=== PATIENT | male | born 1980 | race Caucasian/White ===

== ENCOUNTER 2016-11-17 17:54 | Emergency (ER) | payer OTHER, SELFPAY ==
[~2016-11-17] VITALS: Ht 167.6 cm; Wt 78.3 kg
[2016-11-17 17:54] VITALS: BP 138/77
[2016-11-17] MEDS ORDERED: METO12TA PO ×2 (18:02→18:43)
== END 2016-11-17 18:53 | disposition home or self-care (01) ==
LOC: M ED 18:25
DX: I10 Essential (primary) hypertension (principal); Z76.0 Encounter for issue of repeat prescription; Z79.899 Other long term (current) drug therapy; Z87.891 Personal history of nicotine dependence

== ENCOUNTER 2017-05-03 00:47 | Emergency (ER) | payer MEDICAID, OTHER, SELFPAY ==
[~2017-05-03] VITALS: Ht 167.6 cm; Wt 79.5 kg
[~2017-05-03 00:47] MED LIST: METO1TAB87 PO
[2017-05-03] MEDS ORDERED: AMOX500C PO (06:58)
[2017-05-03] MEDS ORDERED: PERC5TAB12 PO (07:01)
[2017-05-03] MEDS ORDERED: CLINDAMYCIN 900 MG in APPROPRIATE DILUENT 1 EA IV ONE (07:15)
[2017-05-03] MEDS ORDERED: IBUPROFEN 800 MG TAB PO ONE (08:15)
[2017-05-03] MEDS ORDERED: CLEO300C2 PO (08:19)
[2017-05-03 08:33] VITALS: BP 137/93
== END 2017-05-03 08:35 | disposition home or self-care (01) ==
LOC: M ED 00:47
DX: G50.1 Atypical facial pain (principal); F17.200 Nicotine dependence, unspecified, uncomplicated; Z79.899 Other long term (current) drug therapy

== ENCOUNTER → 2017-06-05 | Outpatient (REF) | payer MEDICAID | LOC: M LAB REF 17:31 | DX: J02.9 Acute pharyngitis, unspecified (principal) | CPT/HCPCS: 87070 ==

== ENCOUNTER → 2017-06-23 | Outpatient (REF) | payer OTHER, MEDICAID | LOC: M LAB REF 19:58 | DX: F19.14 Other psychoactive substance abuse with psychoactive substance-induced mood disorder (principal) ==

== ENCOUNTER → 2017-06-30 | Outpatient (REF) | payer OTHER, MEDICAID ==
[2017-07-08 08:06] LABS: AMPHETAMINE SCREEN, URINE Negative ng/mL (Cutoff=1000); BARBITURATES SCREEN, URINE Negative ng/mL (Cutoff=200); BENZODIAZEPINES, URINE SCREEN Negative ng/mL (Cutoff=200); CANNABINOID SCREEN, URINE See Final Results ng/mL (Cutoff=20); CANNABINOID, URINE Positive (Cutoff=20); CARBOXY THC (GC/MS) 16 ng/mL (Cutoff=10); COCAINE SCREEN, URINE Negative ng/mL (Cutoff=300); CREATININE, URINE 86.9 mg/dL (20.0-300.0); FENTANYL URINE SCREEN Negative pg/mL (Cutoff=2000); METHADONE, URINE SCREEN Negative ng/mL (Cutoff=300); NALOXONE RESULT Positive (.); OPIATE SCREEN, URINE Negative ng/mL (Cutoff=300); OXYCODONE, SCREEN, URINE Negative ng/mL (Cutoff=100); PCP SCREEN, URINE Negative ng/mL (Cutoff=25); SPECIFIC GRAVITY, URINE 1.007 (.); URINE BUPRENORPHINE Positive (.); URINE BUPRENORPHINE Positive (Cutoff=10); URINE BUPRENORPHINE See Final Results ng/mL (Cutoff=10); URINE BUPRENORPHINE CONFIRM 166 ng/mL (Cutoff=10); URINE NORBUPRENORPHINE Positive (.); URINE NORBUPRENORPHINE CONFIRM 192 ng/mL (Cutoff=10); pH, URINE 5.3 (4.5-8.9)
== END ==
LOC: M LAB REF 19:30
DX: F19.14 Other psychoactive substance abuse with psychoactive substance-induced mood disorder (principal)
CPT/HCPCS: 80362

== ENCOUNTER → 2017-07-07 | Outpatient (REF) | payer OTHER, MEDICAID | LOC: M LAB REF 19:21 | DX: F19.14 Other psychoactive substance abuse with psychoactive substance-induced mood disorder (principal) ==

== ENCOUNTER → 2017-07-16 | Outpatient (REF) | payer OTHER, MEDICAID | LOC: M LAB REF 19:31 | DX: F19.14 Other psychoactive substance abuse with psychoactive substance-induced mood disorder (principal) ==

== ENCOUNTER → 2017-07-21 | Outpatient (REF) | payer OTHER, MEDICAID | LOC: M LAB REF 16:24 | DX: F19.14 Other psychoactive substance abuse with psychoactive substance-induced mood disorder (principal) ==

== ENCOUNTER → 2017-07-28 | Outpatient (REF) | payer OTHER, MEDICAID ==
[2017-07-28 21:13] LABS: ALBUMIN 3.9 GM/DL (3.2-5.2); ALBUMIN/GLOBULIN RATIO 1.39 (1.00-1.93); ALKALINE PHOSPHATASE 100 U/L (45-117); ALT/SGPT 26 U/L (12-78); ANION GAP 7 MEQ/L (8-16); AST/SGOT 22 U/L (7-37); BILIRUBIN,TOTAL 0.3 MG/DL (0.2-1.0); BLOOD UREA NITROGEN 4 MG/DL (7-18); CALCIUM LEVEL 8.6 MG/DL (8.5-10.1); CARBON DIOXIDE LEVEL 28 MEQ/L (21-32); CHLORIDE LEVEL 105 MEQ/L (98-107); CREATININE FOR GFR 0.79 MG/DL (0.70-1.30); GLOMERULAR FILTRATION RATE > 60.0 (>60); GLUCOSE, FASTING 118 MG/DL (70-100); POTASSIUM SERUM 3.7 MEQ/L (3.5-5.1); SODIUM LEVEL 140 MEQ/L (136-145); TOTAL PROTEIN 6.7 GM/DL (6.4-8.2)
== END ==
LOC: M LAB REF 20:12
DX: F19.14 Other psychoactive substance abuse with psychoactive substance-induced mood disorder (principal)

== ENCOUNTER → 2017-08-04 | Outpatient (REF) | payer OTHER, MEDICAID | LOC: M LAB REF 19:29 | DX: F19.120 Other psychoactive substance abuse with intoxication, uncomplicated (principal) ==

== ENCOUNTER → 2017-08-11 | Outpatient (REF) | payer OTHER, MEDICAID | LOC: M LAB REF 16:50 | DX: F19.14 Other psychoactive substance abuse with psychoactive substance-induced mood disorder (principal) ==

== ENCOUNTER → 2017-08-18 | Outpatient (REF) | payer OTHER, MEDICAID ==
[2017-08-25 08:40] LABS: AMPHETAMINE SCREEN, URINE Negative ng/mL (Cutoff=1000); BARBITURATES SCREEN, URINE Negative ng/mL (Cutoff=200); BENZODIAZEPINES, URINE SCREEN Negative ng/mL (Cutoff=200); CANNABINOID SCREEN, URINE Negative ng/mL (Cutoff=20); COCAINE SCREEN, URINE Negative ng/mL (Cutoff=300); CREATININE, URINE 48.4 mg/dL (20.0-300.0); FENTANYL URINE SCREEN Negative pg/mL (Cutoff=2000); METHADONE, URINE SCREEN Negative ng/mL (Cutoff=300); NALOXONE RESULT Positive (.); OPIATE SCREEN, URINE Negative ng/mL (Cutoff=300); OXYCODONE, SCREEN, URINE Negative ng/mL (Cutoff=100); PCP SCREEN, URINE Negative ng/mL (Cutoff=25); SPECIFIC GRAVITY, URINE 1.007 (.); URINE BUPRENORPHINE Positive (.); URINE BUPRENORPHINE Positive (Cutoff=10); URINE BUPRENORPHINE See Final Results ng/mL (Cutoff=10); URINE BUPRENORPHINE CONFIRM 52 ng/mL (Cutoff=10); URINE NORBUPRENORPHINE Positive (.); URINE NORBUPRENORPHINE CONFIRM 166 ng/mL (Cutoff=10); pH, URINE 5.6 (4.5-8.9)
== END ==
LOC: M LAB REF 19:53
DX: F19.14 Other psychoactive substance abuse with psychoactive substance-induced mood disorder (principal)
CPT/HCPCS: 80362

== ENCOUNTER → 2017-08-27 | Outpatient (REF) | payer OTHER, MEDICAID | LOC: M LAB REF 19:36 | DX: F19.120 Other psychoactive substance abuse with intoxication, uncomplicated (principal) ==

== ENCOUNTER → 2017-09-01 | Outpatient (REF) | payer OTHER, MEDICAID | LOC: M LAB REF 17:10 | DX: F19.14 Other psychoactive substance abuse with psychoactive substance-induced mood disorder (principal) ==

== ENCOUNTER → 2017-10-06 | Outpatient (REF) | payer OTHER, MEDICAID | LOC: M LAB REF 17:33 | DX: F19.14 Other psychoactive substance abuse with psychoactive substance-induced mood disorder (principal) ==

== ENCOUNTER → 2017-10-20 | Outpatient (REF) | payer OTHER, MEDICAID | LOC: M LAB REF 16:49 | DX: F19.14 Other psychoactive substance abuse with psychoactive substance-induced mood disorder (principal) ==

== ENCOUNTER → 2019-08-11 | Outpatient (REF) | payer OTHER, MEDICAID ==
[~2019-08-11] MED LIST changes: +AMOX500C PO; +CLEO300C2 PO; +PERC5TAB12 PO
[2019-08-11 14:09] LABS: BASO # 0.1 10^3/uL (0.0-0.2); BASO % 1.1 % (0.0-1.0); EOS # 0.2 10^3/uL (0.0-0.5); HEMATOCRIT 44.3 % (42.0-52.0); HEMOGLOBIN 15.5 g/dl (13.5-17.5); LYMPH # 3.6 10^3/uL (1.5-5.0); LYMPH % 49.3 % (24.0-44.0); MEAN CORPUSCULAR HEMOGLOBIN 31.4 pg (27.0-33.0); MEAN CORPUSCULAR VOLUME 89.7 fl (80.0-96.0); MONO # 0.7 10^3/uL (0.0-0.8); MONO % 9.3 % (0.0-5.0); NEUTROPHILS # 2.7 10^3/uL (1.5-8.5); PLATELET COUNT, AUTOMATED 393 10^3/uL (150-450); RED BLOOD COUNT 4.94 10^6/uL (4.30-6.10); WHITE BLOOD COUNT 7.3 10^3/uL (4.0-10.0)
[2019-08-11 14:17] LABS: ALBUMIN 4.2 GM/DL (3.2-5.2); ALT/SGPT 44 U/L (12-78); BILIRUBIN,TOTAL 0.3 MG/DL (0.2-1.0); BLOOD UREA NITROGEN 4 MG/DL (7-18); CALCIUM LEVEL 9.6 MG/DL (8.5-10.1); CARBON DIOXIDE LEVEL 32 MEQ/L (21-32); CHLORIDE LEVEL 100 MEQ/L (98-107); CHOLESTEROL LEVEL 180 MG/DL (<200); CHOLESTEROL RISK RATIO 6.206 (<5); CREATININE FOR GFR 0.77 MG/DL (0.70-1.30); FREE T4 1.13 NG/DL (0.76-1.46); GLOMERULAR FILTRATION RATE > 60.0 (>60); GLUCOSE, FASTING 117 MG/DL (70-100); HDL CHOLESTEROL 29 MG/DL (>40); LDL CHOLESTEROL 116 MG/DL (<100); NON-HDL-C 151 MG/DL; POTASSIUM SERUM 4.1 MEQ/L (3.5-5.1); SODIUM LEVEL 136 MEQ/L (136-145); TOTAL PROTEIN 6.9 GM/DL (6.4-8.2); TRIGLYCERIDES LEVEL 174 MG/DL (<150)
[2019-08-11 14:19] LABS: TOTAL 25(OH) VITAMIN D 13.2 NG/ML (30.0-100.0)
== END ==
LOC: M LAB REF 12:42
PROVIDERS: ATTEND Physician Assistant
DX: M62.08 Separation of muscle (nontraumatic), other site (principal); E66.3 Overweight; I10 Essential (primary) hypertension

== ENCOUNTER → 2021-07-23 | Outpatient (CLI) | payer OTHER, MEDICAID ==
[2021-07-23 13:14] LABS: ALBUMIN 3.8 GM/DL (3.2-5.2); ALT/SGPT 24 U/L (12-78); BILIRUBIN,TOTAL 0.5 MG/DL (0.2-1.0); BLOOD UREA NITROGEN 6 MG/DL (7-18); CALCIUM LEVEL 9.2 MG/DL (8.5-10.1); CARBON DIOXIDE LEVEL 30 MEQ/L (21-32); CHLORIDE LEVEL 104 MEQ/L (98-107); CHOLESTEROL LEVEL 161 MG/DL (<200); CHOLESTEROL RISK RATIO 5.551 (<5); CREATININE FOR GFR 0.69 MG/DL (0.70-1.30); FREE T4 0.97 NG/DL (0.76-1.46); GLOMERULAR FILTRATION RATE > 60.0 (>60); GLUCOSE, FASTING 99 MG/DL (70-100); HDL CHOLESTEROL 29 MG/DL (>40); LDL CHOLESTEROL 107 MG/DL (<100); NON-HDL-C 132 MG/DL; POTASSIUM SERUM 4.2 MEQ/L (3.5-5.1); SODIUM LEVEL 141 MEQ/L (136-145); TOTAL PROTEIN 6.3 GM/DL (6.4-8.2); TRIGLYCERIDES LEVEL 126 MG/DL (<150)
[2021-07-23 17:27] LABS: HIV 1&2 SCREEN CENTAUR NEGATIVE (NEGATIVE)
== END ==
LOC: M WUC 09:13
PROVIDERS: ATTEND Family Medicine Addiction Medicine
DX: Z11.3 Encounter for screening for infections with a predominantly sexual mode of transmission (principal); I10 Essential (primary) hypertension

== ENCOUNTER → 2023-05-07 | Outpatient (REF) | payer OTHER, MEDICAID | LOC: M LAB REF 16:29 | PROVIDERS: ATTEND Nurse Practitioner Family | DX: J02.9 Acute pharyngitis, unspecified (principal) ==

== ENCOUNTER 2023-09-01 20:51 | Emergency (ER) | payer MEDICAID, OTHER ==
[~2023-09-01] VITALS: Ht 167.6 cm; Wt 65.3 kg
[2023-09-01] MEDS ORDERED: GABA-282 (21:16)
[2023-09-01] MEDS ORDERED: NALO4SPR (21:16)
[2023-09-01] MEDS ORDERED: LISI20TA33 (21:16)
[2023-09-01] MEDS ORDERED: BUPR1FIL (21:16)
[2023-09-02] MEDS: KETOROLAC TROMETHAMINE 10 MG TAB PO ONE (00:36)
[2023-09-02] MEDS ORDERED: KETO10TAB PO (00:37)
[2023-09-02 00:51] VITALS: BP 112/57; TEMP 98; O2SAT 98
== END 2023-09-02 00:53 | disposition home or self-care (01) ==
LOC: M ED 20:51
DX: S20.211A Contusion of right front wall of thorax, initial encounter (principal); S70.01XA Contusion of right hip, initial encounter; W17.89XA Other fall from one level to another, initial encounter; Y92.9 Unspecified place or not applicable; Y93.9 Activity, unspecified; Y99.0 Civilian activity done for income or pay; Z79.891 Long term (current) use of opiate analgesic; Z79.811 Long term (current) use of aromatase inhibitors; Z79.899 Other long term (current) drug therapy

== ENCOUNTER → 2023-12-24 | Outpatient (REF) | payer OTHER, MEDICAID ==
[~2023-12-24] MED LIST changes: +BUPR1FIL; +GABA-282; +KETO10TAB PO; +LISI20TA33; +NALO4SPR3
[2023-12-24 13:22] LABS: BASO # 0.1 10^3/uL (0.0-0.2); EOS # 0.2 10^3/uL (0.0-0.5); EOS % 2.7 % (0.0-3.0); HEMATOCRIT 40.8 % (42.0-52.0); LYMPH # 3.3 10^3/uL (1.5-5.0); LYMPH % 40.8 % (24.0-44.0); MEAN CORPUSCULAR HEMOGLOBIN 30.3 pg (27.0-33.0); MEAN CORPUSCULAR HGB CONC 34.3 g/dl (32.0-36.5); MEAN CORPUSCULAR VOLUME 88.3 fl (80.0-96.0); MONO # 0.8 10^3/uL (0.0-0.8); MONO % 9.7 % (2.0-8.0); NEUTROPHILS # 3.7 10^3/uL (1.5-8.5); NEUTROPHILS % 45.6 % (36.0-66.0); PLATELET COUNT, AUTOMATED 322 10^3/uL (150-450); RED BLOOD COUNT 4.62 10^6/uL (4.30-6.10); WHITE BLOOD COUNT 8.1 10^3/uL (4.0-10.0)
[2023-12-24 13:29] LABS: ALKALINE PHOSPHATASE 76 U/L (46-116); ALT/SGPT 18 U/L (7.0-40); AST/SGOT 22 U/L (<34); BILIRUBIN,TOTAL 0.4 MG/DL (0.3-1.2); BLOOD UREA NITROGEN 8 MG/DL (9-23); CALCIUM LEVEL 9.7 MG/DL (8.5-10.1); CARBON DIOXIDE LEVEL 30 MMOL/L (20-31); CHLORIDE LEVEL 106 MMOL/L (98-107); CHOLESTEROL LEVEL 160 MG/DL (<200); CHOLESTEROL RISK RATIO 4.25 (<5); CREATININE FOR GFR 0.69 MG/DL (0.70-1.30); GLOMERULAR FILTRATION RATE > 60.0 (>60); GLUCOSE, FASTING 102 MG/DL (60-100); HDL CHOLESTEROL 37.6 MG/DL (>40); LDL CHOLESTEROL 106.2 MG/DL (<100); NON-HDL-C 122.4 MG/DL; POTASSIUM SERUM 4.4 MMOL/L (3.5-5.1); SODIUM LEVEL 139 MMOL/L (136-145); TOTAL PROTEIN 6.3 G/DL (5.7-8.2); TRIGLYCERIDES LEVEL 81 MG/DL (<150)
[2023-12-24 13:30] LABS: THYROID STIMULATING HORMONE 2.787 uIU/ML (0.55-4.78)
[2023-12-24 13:31] LABS: FREE T4 1.07 NG/DL (0.89-1.76)
== END ==
LOC: M LAB REF 12:51
PROVIDERS: ATTEND Family Medicine Addiction Medicine
DX: R63.4 Abnormal weight loss (principal); Z13.228 Encounter for screening for other metabolic disorders